=== PATIENT | male | born 1965 | race Caucasian/White ===

== ENCOUNTER 2017-09-16 11:12 | Emergency (ER) | payer OTHER ==
[2017-09-16 13:16] VITALS: BP 171/83
[2017-09-16] MEDS ORDERED: Ondansetron INJ* 2 MG/ML VIAL IM ONE (13:21)
--- NOTE | 2017-09-16 13:31 | ED ---
Abdominal Pain/Male - HPI Summary HPI Summary: Patient is a 52yo M with a history of intestinal obstruction in 2016 who presents to the with CC of fatigue, weakness, decreased oral intake x 3 days with last PO last evening in which he vomited. He denies BM in 3 days but states he has passed gas maybe twice since Thursday. N/V x 3 days. He states he feels very full and is unable to burp. He has seen Dr. Moreno last year for SBO. It appears last year he was admitted to the hospital, but after NPO status x 2 days, he was discharged without surgical intervention. He denies fevers, but notes to chills and intermittent sweats. Denies urinary symptoms. He denies travel. Pain is 8/10, diffusely located over the entire abdomen without specificity and does not radiate. Worse with eating and better with rest. Fatigue is 10/10 and states he has never felt "this fatigued" before, but this is likele d/t little PO intake. Denies abdominal surgeries. - History of Current Complaint Chief Complaint: UCGI Stated Complaint: VOMITING Time Seen by Provider: 09/16/17 13:21 Hx Obtained From: Patient Onset/Duration: Sudden Onset Timing: Constant Severity Initially: Moderate Severity Currently: Moderate Pain Intensity: 5 Pain Scale Used: 0-10 Numeric Location: Diffuse Radiates: No Character: Cramping Aggravating Factor(s): Food Alleviating Factor(s): Nothing Associated Signs And Symptoms: Positive: Constipation, Decreased Appetite, Nausea, Vomiting - Risk Factors Testicular Torsion: Negative Cardiac Risk Factors: Negative - Allergies/Home Medications Allergies/Adverse Reactions: Allergies Allergy/AdvReac Type Severity Reaction Status Date / Time No Known Allergies Allergy Verified 09/02/16 14:17 Home Medications: Home Medications NK [No Home Medications Reported] 09/16/17 [History Confirmed 09/16/17] PMH/Surg Hx/FS Hx/Imm Hx Previously Healthy: Yes Endocrine/Hematology History: Denies: Hx Diabetes, Hx Thyroid Disease Cardiovascular History: Denies: Hx Congestive Heart Failure, Hx Hypertension, Hx Pacemaker/ICD Respiratory History: Denies: Hx Asthma, Hx Chronic Obstructive Pulmonary Disease (COPD) GI History: Denies: Hx Ulcer History: Reports: Other Problems/Disorders - chronic urinary symptoms Denies: Hx Dialysis, Hx Renal Disease Musculoskeletal History: Reports: Hx Back Problems Sensory History: Denies: Hx Hearing Aid Psychiatric History: Denies: Hx Panic Disorder - Surgical History Surgery Procedure, Year, and Place: herniated discs -2010 back surgery to lumbar area /laminectomy L4-L5 - Immunization History Hx Pertussis Vaccination: No Immunizations Up to Date: Unable to Obtain/Confirm Infectious Disease History: No Infectious Disease History: Denies: Hx Clostridium Difficile, Hx Hepatitis, Hx Human Immunodeficiency Virus (HIV), Hx of Known/Suspected MRSA, Hx Shingles, Hx Tuberculosis, Hx Known/ Suspected VRE, Hx Known/Suspected VRSA, History Other Infectious Disease, Traveled Outside the [place] in Last 30 Days - Family History Known Family History: Positive: Hypertension - Social History Occupation: Employed Full-time Lives: With Family Alcohol Use: Occasionally Hx Substance Use: No Substance Use Type: Reports: None Hx Tobacco Use: Yes Smoking Status (MU): Light Every Day Tobacco Smoker Type: Smokeless Tobacco Amount Used/How Often: 2 CANS PER WEEK Have You Smoked in the Last Year: Yes Review of Systems Positive: Fatigue, Skin Diaphoresis. Negative: Fever, Chills ENT: Negative Cardiovascular: Negative Negative: Shortness Of Breath, Cough Positive: Abdominal Pain, Vomiting, Nausea, Other - constipation Genitourinary: Negative Positive: no symptoms reported, see HPI Musculoskeletal: Negative Skin: Negative Neurological: Negative Psychological: Normal All Other Systems Reviewed And Are Negative: Yes Physical Exam Triage Information Reviewed: Yes Vital Signs On Initial Exam: Initial Vitals Temp Pulse Resp BP Pulse Ox 97.6 F 50 18 171/83 100 09/16/17 13:11 09/16/17 13:11 09/16/17 13:11 09/16/17 13:11 09/16/17 13:11 Vital Signs Reviewed: Yes Appearance: Positive: Well-Appearing, Well-Nourished Skin: Positive: Warm, Skin Color Reflects Adequate Perfusion Head/Face: Positive: Normal Head/Face Inspection Neck: Positive: Supple, No Lymphadenopathy Respiratory/Lung Sounds: Positive: Clear to Auscultation, Breath Sounds Present Cardiovascular: Positive: Normal, RRR, Pulses are Symmetrical in both Upper and Lower Extremities Abdomen Description: Positive: No Organomegaly, Distended, Guarding, McBurney's Point Tenderness. Negative: CVA Tenderness (R), CVA Tenderness (L) Musculoskeletal: Positive: Normal, Strength/ROM Intact Neurological: Positive: Sensory/Motor Intact, Alert, Oriented to Person Place, Time, Speech Normal Psychiatric: Positive: Normal Diagnostics - Vital Signs Vital Signs Temp Pulse Resp BP Pulse Ox 09/16/17 13:11 97.6 F 50 18 171/83 100 - Laboratory Lab Statement: Any lab studies that have been ordered have been reviewed, and results considered in the medical decision making process. Abdominal Pain Fem Course/Dx - Course Course Of Treatment: Patient evaluated for diffuse tenderness, 8/10 pain, weakness and N/V with no BM in 3 days. History of obstruction last year with resolve with NPO status. Denies fevers. Notes to chills and sweats intermittently He is offered IM zofran prior to discharge, but refuses d/t requirement of staying for observation x10 minutes after administration. He is encouraged to go directly to the ED for possible obstruction vs. appendicitis vs. other etiology. He agrees. Refuses ambulance upon offer. Brother will take him directly to the ED. He is stable on arrival but appears ill. VS stable. - Diagnoses Differential Diagnosis/HQI/PQRI: Other - SBO, appy, GB Provider Diagnoses: Abdominal pain Discharge - Discharge Plan Condition: Stable Disposition: HOME Referrals: Cash Tripathi NP [Primary Care Provider] - Additional Instructions: I advise you go immediately to the ED!
== END 2017-09-16 13:32 | disposition home or self-care (01) ==
LOC: UCEAST 11:12
DX: R10.9 Unspecified abdominal pain (principal); F17.290 Nicotine dependence, other tobacco product, uncomplicated
CPT/HCPCS: 99212; G0463

== ENCOUNTER → 2017-09-16 13:47 | Emergency (ER) | payer OTHER ==
[~2017-09-16 13:47] MED LIST: Iohexol 300* (CONTRAST) 10 ML SDV IV ONE; Morphine INJ* 4 MG/ML 1 ML CARPUJECT IV ONE; Ondansetron INJ* 2 MG/ML VIAL IV ONE
[2017-09-16] MEDS: NS 0.9% 1000 ML* 2,000 ML IV ONE ×2 (16:00→16:01)
--- NOTE | 2017-09-16 16:10 | RAD ---
INDICATION: Abdominal pain COMPARISON: None TECHNIQUE: A single view of the abdomen is submitted. FINDINGS: Bones: There are no acute bony findings. Soft tissues: The soft tissues appear normal. The psoas margins are sharp. Bowel gas pattern: Normal Calcifications: There are no abnormal calcifications. Other: None IMPRESSION: NO ACUTE DIAGNOSTIC FINDINGS.
[2017-09-16 16:19] LABS: Hematocrit 44 % (42-52); Hemoglobin 15.7 g/dl (14.0-18.0); Mean Corpuscular HGB Conc 35 g/dl (31-36); Mean Corpuscular Hemoglobin 33 pg (27-31); Mean Corpuscular Volume 93 fL (80-94); Mean Platelet Volume 8 um3 (7.4-10.4); Red Blood Count 4.77 10^6/ul (4.0-5.4); Red Cell Distribution Width 13 % (10.5-15)
[2017-09-16 16:36] LABS: ALT 13 U/L (7-52); AST 17 U/L (13-39); Albumin 4.1 g/dL (3.2-5.2); Alkaline Phosphatase 55 U/L (34-104); Anion Gap 5 mmol/L (2-11); BUN/Creatinine Ratio 13.5 (8-20); Blood Urea Nitrogen 15 mg/dL (6-24); C Reactive Protein < 1.00 mg/L (< 5.00); CO2 Carbon Dioxide 30 mmol/L (22-32); Calcium 9.3 mg/dL (8.6-10.3); Chloride 103 mmol/L (101-111); EGFR African American 90.2 (>60); EGFR Non-African American 70.1 (>60); Globulin 2.7 g/dL (2-4); Glucose 85 mg/dL (70-100); Lipase 39 U/L (11.0-82.0); Sodium 138 mmol/L (133-145); Total Protein 6.8 g/dL (6.4-8.9)
[2017-09-16 18:04] LABS: Urine Bilirubin Negative (Negative); Urine Glucose Negative (Negative); Urine Nitrite Negative (Negative)
--- NOTE | 2017-09-16 19:01 | RAD ---
Indication: Abdominal pain with nausea and vomiting. Contrast: Administered 100.1 ml of OMNIPAQUE 300 mg/ml CT of the abdomen and pelvis was performed after oral and IV contrast demonstration. Coronal and sagittal reconstructed images were obtained. Comparison is made with previous exam dated June 20, 2016. The lung bases demonstrate no pleural fluid, nodules or masses. Heart is of normal size without evidence of pericardial effusion. Liver is normal in size. No focal lesions or intrahepatic ductal dilatation is noted. The gallbladder demonstrates no calcified gallstones. No focal wall thickening or pericholecystic fluid is identified. The spleen is normal in size. The pancreas demonstrates no mass or pancreatic ductal dilatation. The common duct is not dilated. No adrenal lesions are noted. The kidneys demonstrate symmetric nephrograms without focal lesions. No hydronephrosis of either kidney is noted. Aorta and inferior vena cava is unremarkable. There is no retroperitoneal adenopathy. No dilated loops of bowel are noted. The colon is filled with stool. CT of the pelvis demonstrates urinary bladder to be unremarkable. No hernias are identified. No evidence of bowel obstruction is noted. No free fluid is identified. IMPRESSION: No abnormal masses or fluid collection is noted. No evidence of bowel obstruction is noted. Contrast is noted in the colon. No abnormally dilated loops of bowel are noted.
[2017-09-16 19:26] VITALS: BP 117/65
--- NOTE | 2017-09-17 08:40 | ED ---
Nadir Bonilla Angela, scribed for Eduin Emery MD on 09/16/17 at 1537 . Abdominal Pain/Male - HPI Summary HPI Summary: This pt is a 52 y/o male presenting to [facility] c/o abd pain, nausea, vomiting x3 days. He notes his symptoms began on Thursday (3 days ago) but didnt' t vomit until 2 days ago (on Thursday). Pt reports he had intestinal obstruction in 2016 and was discharged with no surgical intervention. Pt currently rates his pain 8/10 in severity. He states he has been passing some flatus, but small amount. Pt has had no bowel movement for 3 days now. Pt also notes decreased PO intake and fatigue. Pt denies diarrhea, fever, urinary symptoms. Pt denies any abdominal surgeries. - History of Current Complaint Chief Complaint: EDAbdPain Stated Complaint: POSS INTESTINE BLOCKAGE/COMING FROM CC Time Seen by Provider: 09/16/17 15:35 Hx Obtained From: Patient Onset/Duration: Lasting Days Timing: Lasting Days Severity Initially: Moderate Severity Currently: Severe Pain Intensity: 8 Pain Scale Used: 0-10 Numeric Location: Diffuse Radiates: No Associated Signs And Symptoms: Positive: Decreased Appetite, Nausea, Vomiting. Negative: Fever, Constipation, Urinary Symptoms, Diarrhea - Allergies/Home Medications Allergies/Adverse Reactions: Allergies Allergy/AdvReac Type Severity Reaction Status Date / Time No Known Allergies Allergy Verified 09/02/16 14:17 PMH/Surg Hx/FS Hx/Imm Hx Endocrine/Hematology History: Denies: Hx Diabetes, Hx Thyroid Disease Cardiovascular History: Denies: Hx Congestive Heart Failure, Hx Hypertension, Hx Pacemaker/ICD Respiratory History: Denies: Hx Asthma, Hx Chronic Obstructive Pulmonary Disease (COPD) GI History: Denies: Hx Ulcer History: Reports: Other Problems/Disorders - chronic urinary symptoms Denies: Hx Dialysis, Hx Renal Disease Musculoskeletal History: Reports: Hx Back Problems Sensory History: Denies: Hx Hearing Aid Psychiatric History: Denies: Hx Panic Disorder - Surgical History Surgery Procedure, Year, and Place: herniated discs -2010 back surgery to lumbar area /laminectomy L4-L5 Infectious Disease History: No Infectious Disease History: Denies: Hx Clostridium Difficile, Hx Hepatitis, Hx Human Immunodeficiency Virus (HIV), Hx of Known/Suspected MRSA, Hx Shingles, Hx Tuberculosis, Hx Known/ Suspected VRE, Hx Known/Suspected VRSA, History Other Infectious Disease, Traveled Outside the [place] in Last 30 Days - Family History Known Family History: Positive: Hypertension - Social History Alcohol Use: Occasionally Hx Substance Use: No Substance Use Type: Reports: None Hx Tobacco Use: Yes Smoking Status (MU): Light Every Day Tobacco Smoker Type: Smokeless Tobacco Amount Used/How Often: 2 CANS PER WEEK Have You Smoked in the Last Year: Yes Review of Systems Positive: Fatigue, Other - decreased PO intake. Negative: Fever Negative: Chest Pain Negative: Shortness Of Breath Gastrointestinal: Other - passing flatus Positive: Abdominal Pain, Vomiting, Nausea, Other - constipation. Negative: Diarrhea Negative: dysuria, frequency, hematuria, urgency Musculoskeletal: Negative Skin: Negative All Other Systems Reviewed And Are Negative: Yes Physical Exam - Summary Physical Exam Summary: VITAL SIGNS: Reviewed. GENERAL: Patient is a well-developed and nourished male. Patient is in some distress secondary to pain. HEAD AND FACE: Normocephalic and atraumatic. EYES: PERRLA, EOMI x 2, No injected conjunctiva. EARS: Hearing grossly intact. Ear canals and tympanic membranes are WNL. MOUTH: Oropharynx within normal limits. NECK: Supple, trachea is midline, no adenopathy, no JVD. CHEST: Symmetric, no tenderness at palpation LUNGS: Clear to auscultation bilaterally. No wheezing or crackles. CVS: RRR, S1 and S2 present, no murmurs or gallops appreciated. ABDOMEN: Soft. There is diffuse abd tenderness. No signs of distention. There are decreased bowel sounds. No rebound no guarding, and no masses palpated. No abdominal bruit or pulsations. EXTREMITIES: FROM in all major joints, no edema, no cyanosis or clubbing. NEURO: Alert and oriented x 3. No acute neurological deficits. Speech is normal. SKIN: Dry and warm Triage Information Reviewed: Yes Vital Signs On Initial Exam: Initial Vitals Temp Pulse Resp BP Pulse Ox 97.6 F 58 20 140/76 100 09/16/17 13:59 09/16/17 13:59 09/16/17 13:59 09/16/17 13:59 09/16/17 13:59 Vital Signs Reviewed: Yes Diagnostics - Vital Signs Vital Signs Temp Pulse Resp BP Pulse Ox 09/16/17 13:59 97.6 F 58 20 140/76 100 - Laboratory Lab Results: Lab Results 09/16/17 09/16/17 09/16/17 Range/Units 16:10 16:10 16:10 WBC 4.0 (3.5-10.8) 10^3/ul RBC 4.77 (4.0-5.4) 10^6/ul Hgb 15.7 (14.0-18.0) g/dl Hct 44 (42-52) % MCV 93 (80-94) fL MCH 33 H (27-31) pg MCHC 35 (31-36) g/dl RDW 13 (10.5-15) % Plt Count 231 (150-450) 10^3/ul MPV 8 (7.4-10.4) um3 Neut % (Auto) 49.3 (38-83) % Lymph % (Auto) 34.8 (25-47) % [place] % (Auto) 11.1 H (1-9) % Eos % (Auto) 3.5 (0-6) % Baso % (Auto) 1.3 (0-2) % Absolute Neuts (auto) 2.0 (1.5-7.7) 10^3/ul Absolute Lymphs (auto) 1.4 (1.0-4.8) 10^3/ul Absolute Monos (auto) 0.4 (0-0.8) 10^3/ul Absolute Eos (auto) 0.1 (0-0.6) 10^3/ul Absolute Basos (auto) 0.1 (0-0.2) 10^3/ul Absolute Nucleated RBC 0 10^3/ul Nucleated RBC % 0 Sodium 138 (133-145) mmol/L Potassium 4.0 (3.5-5.0) mmol/L Chloride 103 (101-111) mmol/L Carbon Dioxide 30 (22-32) mmol/L Anion Gap 5 (2-11) mmol/L BUN 15 (6-24) mg/dL Creatinine 1.11 (0.67-1.17) mg/dL Est GFR ( Amer) 90.2 (>60) Est GFR (Non-Af Amer) 70.1 (>60) BUN/Creatinine Ratio 13.5 (8-20) Glucose 85 (70-100) mg/dL Lactic Acid (0.5-2.0) mmol/L Calcium 9.3 (8.6-10.3) mg/dL Total Bilirubin 0.60 (0.2-1.0) mg/dL AST 17 (13-39) U/L ALT 13 (7-52) U/L Alkaline Phosphatase 55 (34-104) U/L C-Reactive Protein < 1.00 (< 5.00) mg/L B-Natriuretic Peptide 23 ( - 100) pg/mL Total Protein 6.8 (6.4-8.9) g/dL Albumin 4.1 (3.2-5.2) g/dL Globulin 2.7 (2-4) g/dL Albumin/Globulin Ratio 1.5 (1-3) Lipase 39 (11.0-82.0) U/L Urine Color Urine Appearance Urine pH (5-9) Ur Specific [place] (1.010-1.030) Urine Protein (Negative) Urine Ketones (Negative) Urine Blood (Negative) Urine Nitrate (Negative) Urine Bilirubin (Negative) Urine Urobilinogen (Negative) Ur Leukocyte Esterase (Negative) Urine Glucose (Negative) 09/16/17 09/16/17 Range/Units 16:10 17:50 WBC (3.5-10.8) 10^3/ul RBC (4.0-5.4) 10^6/ul Hgb (14.0-18.0) g/dl Hct (42-52) % MCV (80-94) fL MCH (27-31) pg MCHC (31-36) g/dl RDW (10.5-15) % Plt Count (150-450) 10^3/ul MPV (7.4-10.4) um3 Neut % (Auto) (38-83) % Lymph % (Auto) (25-47) % [place] % (Auto) (1-9) % Eos % (Auto) (0-6) % Baso % (Auto) (0-2) % Absolute Neuts (auto) (1.5-7.7) 10^3/ul Absolute Lymphs (auto) (1.0-4.8) 10^3/ul Absolute Monos (auto) (0-0.8) 10^3/ul Absolute Eos (auto) (0-0.6) 10^3/ul Absolute Basos (auto) (0-0.2) 10^3/ul Absolute Nucleated RBC 10^3/ul Nucleated RBC % Sodium (133-145) mmol/L Potassium (3.5-5.0) mmol/L Chloride (101-111) mmol/L Carbon Dioxide (22-32) mmol/L Anion Gap (2-11) mmol/L BUN (6-24) mg/dL Creatinine (0.67-1.17) mg/dL Est GFR ( Amer) (>60) Est GFR (Non-Af Amer) (>60) BUN/Creatinine Ratio (8-20) Glucose (70-100) mg/dL Lactic Acid 0.6 (0.5-2.0) mmol/L Calcium (8.6-10.3) mg/dL Total Bilirubin (0.2-1.0) mg/dL AST (13-39) U/L ALT (7-52) U/L Alkaline Phosphatase (34-104) U/L C-Reactive Protein (< 5.00) mg/L B-Natriuretic Peptide ( - 100) pg/mL Total Protein (6.4-8.9) g/dL Albumin (3.2-5.2) g/dL Globulin (2-4) g/dL Albumin/Globulin Ratio (1-3) Lipase (11.0-82.0) U/L Urine Color Yellow Urine Appearance Clear Urine pH 5.0 (5-9) Ur Specific [place] 1.013 (1.010-1.030) Urine Protein Negative (Negative) Urine Ketones Negative (Negative) Urine Blood Negative (Negative) Urine Nitrate Negative (Negative) Urine Bilirubin Negative (Negative) Urine Urobilinogen Negative (Negative) Ur Leukocyte Esterase Negative (Negative) Urine Glucose Negative (Negative) Result Diagrams: 09/16/17 16:10 09/16/17 16:10 Lab Statement: Any lab studies that have been ordered have been reviewed, and results considered in the medical decision making process. - Radiology Abdomen XR Xray Interpretation: No Acute Changes - IMPRESSION: No acute diagnostic findings. ED physician has reviewed this radiology report and agrees. Radiology Interpretation Completed By: Radiologist - CT Abdomen/pelvis CT CT Interpretation: No Acute Changes - IMPRESSION: No abnormal masses or fluid collection is noted. No evidence of bowel obstruction is noted. Contrast is noted in the colon. No abnormality dilated loops of bowel are noted. ED physician has reviewed this radiology report and agrees. CT Interpretation Completed By: Radiologist - EKG 1615 Cardiac Rate: Bradycardia - 51 bpm EKG Rhythm: Sinus Rhythm EKG Interpretation: No ST elevation Re-Evaluation - Re-Evaluation First Eval Re-Evaluation Time: 19:10 Comment: Pt is feeling much better. Abdominal Pain Fem Course/Dx - Course Assessment/Plan: This pt is a 52 y/o male presenting to [facility] from [facility] c/o abd pain, nausea, vomiting x3 days. He notes his symptoms began on Thursday (3 days ago) but didnt't vomit until 2 days ago (on Thursday). Pt reports he had intestinal obstruction in 2016 and was discharged with no surgical intervention. Pt currently rates his pain 8/10 in severity. He states he has been passing some flatus, but small amount. Pt has had no bowel movement for 3 days now. Pt also notes decreased PO intake and fatigue. Pt denies diarrhea, fever, urinary symptoms. Pt denies any abdominal surgeries. Test results without any significant abnormalities. UA is negative. Abdomen XR shows no acute diagnostic findings. Since he has history of bowel obstruction, I did an abdomen/pelvis CT. CT abdomen/pelvis reveals no abnormal masses or fluid collection is noted. No evidence of bowel obstruction is noted. Contrast is noted in the colon. No abnormality dilated loops of bowel are noted. Pt was given IV fluids, morphine for the pain and Zofran for the nausea. Pt will be discharged and is advised to follow up with his PCP. - Diagnoses Differential Diagnosis/HQI/PQRI: Bowel Obstruction, Constipation, Diverticulitis , Ischemic Bowel, Ureteral Stone, Urinary Tract Infection Provider Diagnoses: Abdominal pain Discharge - Discharge Plan Condition: Stable Disposition: HOME Patient Education Materials: Abdominal Pain (ED) Forms: *Work Release Referrals: Cash Tripathi NP [Primary Care Provider] - Additional Instructions: Please follow up with your primary care provider. RETURN TO THE ED FOR ANY WORSENING SYMPTOMS. The documentation as recorded by the Nadir fleming Angela accurately reflects the service I personally performed and the decisions made by me, Eduin Emery MD.
== END | disposition home or self-care (01) ==
LOC: ED 13:47
DX: R10.9 Unspecified abdominal pain (principal); R11.2 Nausea with vomiting, unspecified; R53.83 Other fatigue
CPT/HCPCS: 36415; 74000; 74177; 80053; 81003; 83605; 83690; 83880; 85025; 86140; 93005; 96374; 96375; 99283; J2270; J2405; Q9967

== ENCOUNTER 2019-11-15 15:07 | Emergency (ER) | payer SELFPAY ==
[2019-11-15 15:23] VITALS: BP 155/85
--- NOTE | 2019-11-15 15:34 | UC ---
Cardiac HPI - HPI Summary HPI Summary: 54-year-old male presents with one half week history of left-sided chest pain. Describes pain as a constant ache. Worsens with touch and with lifting. States pain is associated with some shortness of breath with exertion. Reports had cold-like symptoms approximately 2 weeks ago including nasal congestion, runny nose, and cough that resolved after about a week. Patient reports both father and brother both have significant history of coronary artery disease and diabetes. Denies fever, chills, cough, palpitations, weakness, dizziness, edema , diaphoresis, abdominal pain, nausea, or vomiting. - History of Current Complaint Chief Complaint: UCChestPain Stated Complaint: CHEST PAIN Time Seen by Provider: 11/15/19 15:14 Hx Obtained From: Patient Pain Intensity: 8 - Allergy/Home Medications Allergies/Adverse Reactions: Allergies Allergy/AdvReac Type Severity Reaction Status Date / Time No Known Allergies Allergy Verified 11/15/19 15:23 PMH/Surg Hx/FS Hx/Imm Hx Previously Healthy: Yes - Denies significant PMH - Surgical History Surgical History: Yes Surgery Procedure, Year, and Place: herniated discs -2010 back surgery to lumbar area /laminectomy L4-L5 - Family History Known Family History: Positive: Cardiac Disease, Hypertension, Other - CAD - Social History Occupation: Employed Full-time Lives: With Family Alcohol Use: Occasionally Substance Use Type: None Smoking Status (MU): Former Smoker Type: Smokeless Tobacco Amount Used/How Often: 2 CANS PER WEEK Have You Smoked in the Last Year: Yes - Immunization History Most Recent Influenza Vaccination: Not indicated Most Recent Tetanus Shot: Unknown Most Recent Pneumonia Vaccination: Never Review of Systems All Other Systems Reviewed And Are Negative: Yes Constitutional: Negative: Fever, Chills Skin: Negative: Rash Respiratory: Positive: Shortness Of Breath. Negative: Cough Cardiovascular: Positive: Chest Pain. Negative: Palpitations Gastrointestinal: Negative: Abdominal Pain, Vomiting, Nausea Genitourinary: Positive: Negative Musculoskeletal: Positive: Negative Neurological: Positive: Negative Is Patient Immunocompromised?: No Physical Exam - Summary Physical Exam Summary: GENERAL APPEARANCE: Well developed, well nourished, alert and cooperative, and appears to be in no acute distress. EYES: Conjunctiva clear. No drainage. EARS: External auditory canals and tympanic membranes clear, hearing grossly intact. NOSE: No nasal discharge. THROAT: Pharynx normal. No tonsilar inflammation, swelling, exudate, or lesions. Uvula midline. NECK: Neck supple, non-tender without lymphadenopathy. CARDIAC: Normal S1 and S2. No S3, S4 or murmurs. Rhythm is regular. There is no peripheral edema, cyanosis or pallor. Extremities are warm and well perfused. Capillary refill is less than 2 seconds. Peripheral pulses intact. LUNGS: Anterior, left-sided chest wall tenderness with palpation. Clear to auscultation without rales, rhonchi, wheezing or diminished breath sounds. ABDOMEN: Positive bowel sounds. Soft, nondistended, nontender. No guarding or rebound. No masses or hepatosplenomegally. MUSKULOSKELETAL: ROM intact to all extremities. No joint erythema or tenderness. Normal muscular development. Normal gait. SKIN: Skin normal color, texture and turgor with no lesions or eruptions. Triage Information Reviewed: Yes Vital Signs: Initial Vital Signs Temp 98.9 F 11/15/19 15:19 Pulse 55 11/15/19 15:19 Resp 16 11/15/19 15:19 BP 155/85 11/15/19 15:19 Pulse Ox 98 11/15/19 15:19 Vital Signs Reviewed: Yes Diagnostics - EKG Cardiac Rate: Bradycardia - Rate 57 Cardiac Rhythm: Sinus: Normal Ectopy: None ST Segment: Normal EKG Comparison: No Significant Change - 09/16/2017 - Assessment/Plan Course Of Treatment: 54-year-old male presents with one half week history of left-sided chest pain. Describes pain as a constant ache. Worsens with touch and with lifting. States pain is associated with some shortness of breath with exertion. Reports had cold-like symptoms approximately 2 weeks ago including nasal congestion, runny nose, and cough that resolved after about a week. Patient reports both father and brother both have significant history of coronary artery disease and diabetes. Denies fever, chills, cough, palpitations, weakness, dizziness, edema , diaphoresis, abdominal pain, nausea, or vomiting. Afebrile. Hypertensive and bradycardic otherwise vital signs stable. 12-lead EKG showed a sinus bradycardia at a rate of 57 without ectopy, ST elevation, or T-wave abnormalities. On exam patient was noted to have left anterior chest wall tenderness with palpation but otherwise unremarkable exam. I discussed with the patient that although I suspect that his pain may be musculoskeletal origin with his significant family history I'm unable to exclude a cardiac origin at this time and I'm recommending further evaluation in the emergency room. Patient is agreeable to this and is electing to transport via private vehicle. - Differential Diagnoses - Chest Pain Differential Diagnosis/HQI/PQRI: Acute CT, ACS, Chest Wall, Lower Respiratory Infection, Pulmonary Embolism - Differential Diagnoses - Palpitations Differential Diagnosis/HQI/PQRI: Pericarditis - Clinical Impression Provider Diagnosis: Chest pain Discharge ED - Sign-Out/Discharge Documenting (check all that apply): Patient Departure All imaging exams completed and their final reports reviewed: No Studies - Discharge Plan Condition: Stable Disposition: HOME-RECOMMEND TO ED Patient Education Materials: Chest Pain (ED) Referrals: Cash Tripathi NP [Primary Care Provider] - Additional Instructions: The EKG was performed in the clinic today was normal however with your significant family history I cannot completely exclude the possibility that your chest pain is of cardiac origin and I'm recommending that you have a further evaluation in the emergency room at this time. Please go directly to the emergency room from here. - Billing Disposition and Condition Condition: STABLE Disposition: Home-Recommend to ED
== END 2019-11-15 15:39 | disposition home health service (06) ==
LOC: UCEAST 15:07
DX: R07.9 Chest pain, unspecified (principal); R06.02 Shortness of breath; I10 Essential (primary) hypertension; R00.1 Bradycardia, unspecified; Z87.891 Personal history of nicotine dependence
CPT/HCPCS: 93005; 99212; G0463

== ENCOUNTER 2019-11-15 16:06 | Emergency (ER) | payer OTHER ==
--- NOTE | 2019-11-15 16:37 | ED ---
HPI Chest Pain - HPI Summary HPI Summary: The patient is a 54 y/o M presenting to [facility] with a chief complaint of CP onset a week and a half ago. He reports that he has been experiencing intermittent episodes of dull pain in the mid-sternal and left anterior regions without radiation of the pain. The pain is aggravated with exertion. He endorses mild SOB with ambulation and cough. He denies any cough, nausea, diaphoresis, or pain or swelling in the legs. Currently, his symptoms are rated 5/10 in severity. He has taken Aleve this morning without relief of the pain. No recent surgery or long travel prior to onset of pain. No history of blood clots. Never had a stress test. No cardiac history. Family history of cardiac disease with father having HI aged 60s and brother aged early 50s. Former smoker , occasional EtOH, no substance use. Medications reviewed. Allergies noted. - History of Current Complaint Chief Complaint: EDChestPainROMI Time Seen by Provider: 11/15/19 16:24 Hx Obtained From: Patient Onset/Duration: Started Days Ago - 1.5 weeks ago, Still Present Timing: Constant Initial Severity: Moderate Current Severity: Moderate Pain Intensity: 5 Pain Scale Used: 0-10 Numeric Chest Pain Location: Mid Sternal, Left Anterior Chest Pain Radiates: No Character: Dull/Aching Aggravating Factor(s): Exertion Alleviating Factor(s): Nothing Associated Signs and Symptoms: Positive: Chest Pain, Shortness of Breath, Cough. Negative: Diaphoresis, Nausea, Edema, Other: - myalgia in legs, rash - Allergy/Home Medications Allergies/Adverse Reactions: Allergies Allergy/AdvReac Type Severity Reaction Status Date / Time No Known Allergies Allergy Verified 11/15/19 15:23 PMH/Surg Hx/FS Hx/Imm Hx Endocrine/Hematology History: Denies: Hx Diabetes, Hx Thyroid Disease Cardiovascular History: Denies: Hx Congestive Heart Failure, Hx Hypertension, Hx Pacemaker/ICD Respiratory History: Denies: Hx Asthma, Hx Chronic Obstructive Pulmonary Disease (COPD) GI History: Denies: Hx Ulcer History: Reports: Other Problems/Disorders - chronic urinary symptoms Denies: Hx Dialysis, Hx Renal Disease Musculoskeletal History: Reports: Hx Back Problems Sensory History: Denies: Hx Hearing Aid Psychiatric History: Denies: Hx Panic Disorder - Surgical History Surgical History: Yes Surgery Procedure, Year, and Place: herniated discs -2009 back surgery to lumbar area /laminectomy L4-L5 Infectious Disease History: No Infectious Disease History: Denies: Hx Clostridium Difficile, Hx Hepatitis, Hx Human Immunodeficiency Virus (HIV), Hx of Known/Suspected MRSA, Hx Shingles, Hx Tuberculosis, Hx Known/ Suspected VRE, Hx Known/Suspected VRSA, History Other Infectious Disease, Traveled Outside the [place] in Last 30 Days - Family History Known Family History: Positive: Cardiac Disease, Hypertension, Other - CAD - Social History Alcohol Use: Occasionally Hx Substance Use: No Substance Use Type: Reports: None Hx Tobacco Use: Yes Smoking Status (MU): Former Smoker Type: Smokeless Tobacco Amount Used/How Often: 2 CANS PER WEEK Have You Smoked in the Last Year: Yes Review of Systems Negative: Skin Diaphoresis Positive: Chest Pain - mid-sternal and left anterior Positive: Shortness Of Breath - with ambulation, Cough Negative: Nausea Negative: Myalgia - in BLE, Edema Negative: Rash All Other Systems Reviewed And Are Negative: Yes Physical Exam - Summary Physical Exam Summary: Constitutional: Well-developed, Well-nourished, Alert. (-) Distressed Skin: Warm, Dry HENT: Normocephalic; Atraumatic Eyes: Conjunctiva normal Neck: Musculoskeletal ROM normal neck. (-) JVD, (-) Stridor, (-) Tracheal deviation Cardio: Rhythm regular, rate normal, Heart sounds normal; Intact distal pulses; Radial pulses are 2+ and symmetric. (-) Murmur Pulmonary/Chest wall: Effort normal. (-) Respiratory distress, (-) Wheezes, (-) Rales Abd: Soft, (-) tenderness, (-) Distension, (-) Guarding, (-) Rebound Musculoskeletal: Good pulses bilaterally in radius, No calf tenderness, No venous cords, No pain with dorsiflexion of foot. (-) Edema Lymph: (-) Cervical adenopathy Neuro: Alert, Oriented x3 Psych: Mood and affect Normal Triage Information Reviewed: Yes Vital Signs On Initial Exam: Initial Vitals Temp Pulse Resp BP Pulse Ox 98.3 F 62 16 176/85 100 11/15/19 16:12 11/15/19 16:12 11/15/19 16:12 11/15/19 16:12 11/15/19 16:12 Vital Signs Reviewed: Yes Procedures - Sedation Patient Received Moderate/Deep Sedation with Procedure: No Diagnostics - Vital Signs Vital Signs Temp Pulse Resp BP Pulse Ox 11/15/19 16:12 98.3 F 62 16 176/85 100 - Laboratory Result Diagrams: 11/15/19 16:47 11/15/19 16:47 Lab Statement: Any lab studies that have been ordered have been reviewed, and results considered in the medical decision making process. - Radiology CXR Radiology Interpretation Completed By: Radiologist Summary of Radiographic Findings: Impression: No acute cardiopulmonary process by radiograph. ED physician has reviewed this imaging report. - EKG 1609 Cardiac Rate: Bradycardia - 57 bpm EKG Rhythm: Sinus Bradycardia Summary of EKG Findings: An EKG at 1609 reveals sinus bradycardia at 57 bpm. No ischemic changes. No STEMI. ED physician has reviewed and interpreted this EKG. Re-Evaluation - Re-Evaluation First Eval Re-Evaluation Time: 17:50 Comment: We discussed results thus far. Offered second troponin but he declined , risks discussed. Chest Pain Course/Dx - Course Course Of Treatment: Patient is here at 1.5 weeks of left-sided constant chest pain. Patient does have tenderness to palpation on his chest wall. Patient had a negative d-dimer and is perc negative. Patient had a negative chest x- ray. Patient had an EKG showed no ischemic changes. Patient had a negative initial troponin. Patient was offered a second troponin but declined. Patient has a heart score of 2 and will follow-up with cardiology for a stress test. - Diagnoses Provider Diagnoses: Chest pain Discharge ED - Sign-Out/Discharge Documenting (check all that apply): Patient Departure - Patient will be discharged home. - Discharge Plan Condition: Stable Disposition: HOME Patient Education Materials: Chest Pain (DC) Referrals: Cash Tripathi NP [Primary Care Provider] - 3 Days Additional Instructions: Continue taking Aleve. Follow up with Dr. Bravo for a stress test in 1-3 days. Come back if worsening chest pain, trouble breathing, or any other concerning symptoms. - Billing Disposition and Condition Condition: STABLE Disposition: Home - Attestation Statements Document Initiated by Scribe: Yes Documenting Scribe: Katerine Newby Provider For Whom Scribe is Documenting (Include Credential): Dr. Mic Johnson MD Scribe Attestation: Katerine Bonilla, scribed for Dr. Mic Johnson MD on 11/15/19 at 205. Scribe Documentation Reviewed: Yes Provider Attestation: The documentation as recorded by the rafalibtheodora, Katerine Newby accurately reflects the service I personally performed and the decisions made by me, Dr. Mic Johnson MD Status of Scribe Document: Viewed
[2019-11-15] MEDS ORDERED: Aspirin 81 mg CHEW TAB* 81 MG TAB.CHEW PO ONE (16:39)
[2019-11-15 17:05] LABS: ABS Basophils 0.1 10^3/ul (0-0.2); ABS Eosinophils 0.2 10^3/ul (0-0.6); ABS Lymphocytes 1.2 10^3/ul (1.0-4.8); ABS Monocytes 0.4 10^3/ul (0-0.8); ABS Neutrophils 2.3 10^3/ul (1.5-7.7); Eosinophil % 4.2 %; Hematocrit 42 % (42-52); Hemoglobin 14.7 g/dL (14.0-18.0); Lymphocyte % 29.1 %; Mean Corpuscular HGB Conc 35 g/dL (31-36); Mean Corpuscular Hemoglobin 34 pg (27-31); Mean Corpuscular Volume 95 fL (80-94); Mean Platelet Volume 8.1 fL (7.4-10.4); Nucleated Red Blood Cells % 0.1; Platelet Count 266 10^3/uL (150-450); Red Blood Count 4.37 10^6 /uL (4.18-5.48); Red Cell Distribution Width 13 % (10-15); White Blood Count 4.1 10^3/uL (3.5-10.8)
[2019-11-15 17:25] LABS: Albumin 4.1 g/dL (3.2-5.2); Albumin/Globulin Ratio 1.5 (1-3); BUN/Creatinine Ratio 12.6 (8-20); Calcium 9.1 mg/dL (8.6-10.3); EGFR African American 84.2 (>60); EGFR Non-African American 69.6 (>60); Globulin 2.7 g/dL (2-4); Potassium 4.4 mmol/L (3.5-5.0); Total Bilirubin 0.5 mg/dL (0.2-1.0); Total Protein 6.8 g/dL (6.4-8.9)
[2019-11-15 18:25] VITALS: BP 132/73
== END 2019-11-15 18:22 | disposition home or self-care (01) ==
LOC: ED 16:06
DX: R07.9 Chest pain, unspecified (principal); R06.02 Shortness of breath; R05 Cough; Z87.891 Personal history of nicotine dependence
CPT/HCPCS: 36415; 71046; 80053; 84484; 85025; 85379; 99282; A9270-GY

== ENCOUNTER 2024-01-08 07:30 | Inpatient (IN) ==
[~2024-01-08 07:30] MED LIST changes: -Iohexol 300* (CONTRAST) 10 ML SDV IV ONE; +Metoclopramide 5 MG/ML VIAL (10 mg) IV PRN; -Morphine INJ* 4 MG/ML 1 ML CARPUJECT IV ONE; +Naloxone 0.4 mg VIAL 0.4 mg/ml 1 ml VIAL IV PRN; -Ondansetron INJ* 2 MG/ML VIAL IV ONE
[2024-01-08] MEDS ORDERED: Lidocaine 2% PF 5 ML VIAL ONE (11:22)
[2024-01-08] MEDS ORDERED: Midazolam 2 mg/2 ml VIAL 1 mg/ml 2 ml VIAL (2 mg) ONE ×2 (11:22→17:05)
[2024-01-08] MEDS ORDERED: Tranexamic Acid 1 GM/100ML BAG 2,000 MG/200 ML BAG IV ONE (11:53)
[2024-01-08] MEDS ORDERED: ceFAZolin 2 GM in NS PREMIX 2 GM/100 ML BAG IVPB ONE (11:53)
[2024-01-08 12:20] LABS: Rapid COVID-19 Molecular Undetected (Undetected)
[2024-01-08] MEDS ORDERED: Propofol 10 MG/ML 20 ML BTL ONE (12:41)
[2024-01-08] MEDS ORDERED: fentaNYL 250 mcg/5 ml 50 MCG/ML 5 ml VIAL (250 MCG) ONE (12:43)
[2024-01-08] MEDS ORDERED: KETAMINE HCL 10 MG/ML 20 ml VIAL (200 MG) ONE (12:45)
[2024-01-08] MEDS ORDERED: ROPIVACAINE 5 MG/ML 30 ML BTL (0.5%) ONE (13:05)
[2024-01-08] MEDS ORDERED: HYDROmorphone 0.5 MG/0.5 ML SYRINGE ONE (13:44)
[2024-01-08] MEDS ORDERED: Glycopyrrolate IV 0.2 MG/ML 1 ML VIAL ONE ×2 (13:45→14:17)
[2024-01-08] MEDS ORDERED: Dexamethasone IV 4 MG/ML VIAL 1 ml VIAL ONE (13:54)
[2024-01-08] MEDS ORDERED: Ondansetron 4 mg VIAL 2 MG/ML 2 ml VIAL ONE ×2 (13:54→17:14)
[2024-01-08] MEDS ORDERED: Lactulose 30 ml UDC PO PRN (14:03)
[2024-01-08] MEDS ORDERED: Morphine 2 MG/ML SYRINGE IV PRN (14:03)
[2024-01-08] MEDS ORDERED: Ondansetron 4 mg VIAL 2 MG/ML 2 ml VIAL IV PRN (14:03)
[2024-01-08] MEDS ORDERED: Magnesium Hydroxide LIQ 30 ML UDC PO PRN (14:03)
[2024-01-08] MEDS ORDERED: Ondansetron ODT 4 mg TAB 4 MG TAB PO PRN (14:03)
[2024-01-08] MEDS ORDERED: fentaNYL 100 mcg/2 ml 50 MCG/ML VIAL ONE ×2 (16:03→16:12)
[2024-01-08] MEDS: fentaNYL 100 mcg/2 ml 50 MCG/ML VIAL IV PRN (16:04)
[2024-01-08] MEDS ORDERED: HYDROmorphone 1 MG/1 ML SYRINGE ONE (16:12)
[2024-01-08] MEDS: HYDROmorphone 1 MG/1 ML SYRINGE IV SLOW PU PRN (16:20)
[2024-01-08] MEDS ORDERED: hydrALAZINE 20 mg/ml 1 ML Vial IV IV SLOW PU PRN (16:57)
[2024-01-08] MEDS: Midazolam 2 mg/2 ml VIAL 1 mg/ml 2 ml VIAL (2 mg) IV SLOW PU ONE (17:11)
[2024-01-08] MEDS: Ondansetron 4 mg VIAL 2 MG/ML 2 ml VIAL IV PRN (17:23)
[2024-01-08] MEDS: Lactated Ringers 1000 ml BAG 1,000 ML IV SCH ×2 (18:06→18:07)
[2024-01-08] MEDS: Buffered Lidocaine 1% SYRIN 1 ml INTRADERM ONE (18:06)
[2024-01-08] MEDS: Magnesium Hydroxide LIQ 30 ML UDC PO SCH (21:34)
[2024-01-08] MEDS: ceFAZolin 1 GM ADVAN 1 GM in NS 0.9% 50 ML 50 ML IVPB SCH (22:10)
[2024-01-09 06:08] LABS: Hematocrit 34.5 % (38-53); Hemoglobin 12.1 g/dL (13.2-16.3); Mean Platelet Volume 7.9 fL (7.5-11.2); Platelet Count 253 10^3/uL (150-450)
[2024-01-09 06:26] LABS: Calcium 8.2 mg/dL (8.6-10.3); Creatinine, Serum 0.97 mg/dL (0.67-1.17); eGFR CKD-EPI 91.6 (>60)
[2024-01-09] MEDS: Vitamin THERAPEUTIC TAB PO SCH (08:29)
[2024-01-09 10:49] VITALS: BP 128/70
== END 2024-01-09 14:55 | disposition home or self-care (01) | DRG 301 ==
LOC: AA 11:38 → SSU 14:03
PROVIDERS: ADMIT Orthopaedic Surgery Adult Reconstructive Orthopaedic Surgery; ATTEND Orthopaedic Surgery Adult Reconstructive Orthopaedic Surgery